=== PATIENT | female | born 1960 | race Two or more races ===

== ENCOUNTER 2025-03-11 23:46 | Emergency (ER) | payer OTHER ==
[~2025-03-11] VITALS: Ht 165.1 cm; Wt 84.3 kg
[2025-03-11 23:53] VITALS: BP 147/88; RESP 20; TEMP 98.4; O2SAT 95
--- NOTE | 2025-03-12 00:19 | ED.PDOC ---
Cruz. trauma (HPI) HPI Comments 65-year-old female presented to the ER with a chief complaint of right 2nd toe pain and swelling for the past hour after experiencing mechanical fall. Patient was coming downstairs, she tripped as it was dark for her to see, her shoulders hit the rails and she landed on her right side of the body, denies hitting her head or losing consciousness. Denies any triggering factors including dizziness lightheadedness, feeling of warmth or cold. Patient complains of right toe pain and swelling, no numbness or tingling, no motor deficits, active and passive range of motion intact with pain. Past medical history atrial flutter on metoprolol Home medications: Metoprolol on Allergic history: None Social history: Lives with , denies smoking/drinking/drug use Patient seen and examined. Active and passive range of motion intact pain over the shoulde and the foot. No bruising of the shoulder or the foot. Shoulder x- ray and 2nd toe right x-ray unremarkable. Chief Complaint: Fall Injury Time Seen by MD: 23:55 Allergies: Coded Allergies: NO KNOWN ALLERGIES (Unverified , 03/11/25) Mode of Arrival: Ambulatory Past Medical History Past Medical History (Other): Atrial flutter Constitutional: denies: chills, diaphoresis, fatigue, fever, malaise, sweats, weakness, others EENTM: denies: blurred vision, double vision, ear bleeding, ear discharge, ear drainage, ear pain, ear ringing, eye pain, eye redness, hearing loss, mouth pain, mouth swelling, nasal discharge, nose bleeding, nose congestion, nose pain, photophobia, tearing, throat pain, throat swelling, voice changes, others Respiratory: denies: cough, hemoptysis, orthopnea, SOB at rest, shortness of breath, SOB with excertion, stridor, wheezing, others Cardiovascular: denies: chest pain, dizzy spells, diaphoresis, Dyspnea on exertion, edema, irregular heart beat, left arm pain, lightheadedness, palpitations, PND, syncope, others Gastrointestinal: denies: abdomen distended, abdominal pain, blood streaked bowels, constipated, diarrhea, dysphagia, difficulty swallowing, hematemesis, melena, nausea, poor appetite, poor fluid intake, rectal bleeding, rectal pain, vomiting, others Genitourinary: denies: abnormal vagina bleeding, burning, dyspareunia, dysuria, flank pain, frequency, hematuria, incontinence, pain, , vagina discharge, urgency, others Neurological: denies: dizziness, fainting, headache, left sided numbness, left sided weakness, numbness, paresthesia, pre-existing deficit, right sided numbness, right sided weakness, seizure, speech problems, tingling, tremors, weakness, others Musculoskeletal: reports: joint pain Integumetry: reports: others (Right 2nd toe tenderness, pain, swelling) Allergic/Immunocompromised: denies: Difficulty Healing, Frequent Infections, Hives, Itching, others Hematologic/Lymphatic: denies: anemia, blood clots, easy bleeding, easy bruising, swollen glands, others Endocrine: denies: excessive hunger, excessive sweating, excessive thirst, excessive urination, flushing, intolerance to cold, intolerance to heat, unexplained weight gain, unexplained weight loss, others Psychiatric: denies: anxiety, bipolar disorder, depression, hopeless, panic disorder, schizophrenia, sleepless, suicidal, others Physical Exam General Appearance: No Apparent Distress, Normal HEENT: NOT DONE Neck: NOT DONE Respiratory: No Accessory Muscle Use, No Respiratory Distress, Normal Breath Sounds Cardiovascular: No Edema, No Murmur, Regular Rate/Rhythm Breast Exam: Deferred Gastrointestinal: No Organomegaly, Non Tender, No Pulsatile Mass, Normal Bowel Sounds, Soft Genitalia: Deferred Pelvic: Deferred Rectal: Deferred Extremities: Other (Right 2nd toe tenderness, passive range of motion intact with pain) Neurologic: Alert, No Motor Deficits, Normal Affect, Normal Mood, No Sensory Deficits Cerebellar Function: NOT DONE Reflexes: NOT DONE Skin: Dry, Warm Lymphatic: NOT DONE Was a procedure done? Was a procedure done?: No Differential Diagnosis Multiple Trauma: Fractures, Other (Sprain, hematoma) X-Ray, Labs, Meds, VS Vital Signs Date Time Temp Pulse Resp B/P (MAP) Pulse Ox O2 Delivery O2 Flow Rate FiO2 03/11/25 23:53 98.4 84 20 147/88 95 98.4 Lab Test 03/12/25 00:33 Range/Units White Blood Count 14.3 H 4.4-10.8 10^3/uL Red Blood Count 4.84 4.0-5.20 10^6/uL Hemoglobin 14.0 12.2-16.2 g/dL Hematocrit 41.8 36.0-46.0 % Mean Corpuscular Volume 86.4 80.0-100.0 fL Mean Corpuscular Hemoglobin 28.9 28.0-32.0 pg Mean Corpuscular Hemoglobin Concent 33.5 32.0-36.0 g/dL Red Cell Distribution Width 13.9 11.8-14.3 % Platelet Count 315 140-450 10^3/uL Mean Platelet Volume 7.4 6.9-10.8 fL Neutrophils (%) (Auto) 75.1 37.0-80.0 % Lymphocytes (%) (Auto) 16.4 10.0-50.0 % Monocytes (%) (Auto) 6.2 0.0-12.0 % Eosinophils (%) (Auto) 1.8 0.0-7.0 % Basophils (%) (Auto) 0.5 0.0-2.0 % Neutrophils # (Auto) 10.7 H 1.6-8.6 10 ^3/uL Lymphocytes # (Auto) 2.4 0.4-5.4 10 ^3/uL Monocytes # (Auto) 0.9 0-1.3 10 ^3/uL Eosinophils # (Auto) 0.3 0-0.8 10 ^3/uL Basophils # (Auto) 0.1 0-0.2 10 ^3/uL Nucleated Red Blood Cells 0.1 % X-Ray, Labs, Meds, VS Comment TECHNIQUE: XYXY R 2ND TOE XRAY Comparison: None FINDINGS/IMPRESSION: : There is no evidence of acute fracture or dislocation. Soft tissues are unremarkable. CLINICAL INDICATION: fall with pain TECHNIQUE: XYXY R SHOULDER 1V XRAY Comparison: None FINDINGS/IMPRESSION: : There is no evidence of acute fracture or dislocation. Soft tissues are unremarkable. Images Reviewed?: Images reviewed and evaluated by me Time of 1ST Reevaluation: 01:00 Reevaluation 1ST: Improved (Pain has improved) Consultation: PCP Patient Education/Counseling: Diagnosis, Treatment Family Education/Counseling: Diagnosis, Treatment Departure 1 Departure Time of Disposition: 01:30 Impression: Primary Impression: Fall (on) (from) other stairs and steps, initial encounter Additional Impression: Pain in toe of right foot Disposition: 01 HOME / SELF CARE / HOMELESS Condition: Stable Comments Elevate the leg on pillows when resting tone reduced swelling Apply ice to the knee for 15-20 minutes several times a day for the 1st few days. Always place a cloth between the ice and skin Take ibuprofen/Tylenol 3 times daily as needed for pain control Please go to the ER BP and noticed severe increasing pain or swelling not relieved by medication on rest, numbness, tingling, coldness in the toes or foot, worsening redness, discharge or fever, sudden difficulty moving dose or new weakness. Follow up with primary care physician within the next 7 days, check your vitamin-D and calcium levels. Eat balance diet rich in calcium and protein to support bone holding, avoid smoking and alcohol. TECHNIQUE: XYXY R 2ND TOE XRAY Comparison: None FINDINGS/IMPRESSION: : There is no evidence of acute fracture or dislocation. Soft tissues are unremarkable. CLINICAL INDICATION: fall with pain TECHNIQUE: XYXY R SHOULDER 1V XRAY Comparison: None FINDINGS/IMPRESSION: : There is no evidence of acute fracture or dislocation. Soft tissues are unremarkable. Critical Care Note Critical Care Time?: No Stability Stability form required: ROXY Garcia RESIDENT Mar 12, 2025 00:19
--- NOTE | 2025-03-12 00:40 | DVH ---
CLINICAL INDICATION: fall with pain TECHNIQUE: XYXY R SHOULDER 1V XRAY Comparison: None FINDINGS/IMPRESSION: : There is no evidence of acute fracture or dislocation. Soft tissues are unremarkable.
--- NOTE | 2025-03-12 01:01 | DVH ---
CLINICAL INDICATION: fall, pain and swelling over 2nd toe TECHNIQUE: XYXY R 2ND TOE XRAY Comparison: None FINDINGS/IMPRESSION: : There is no evidence of acute fracture or dislocation. Soft tissues are unremarkable.
[2025-03-12 01:04] LABS: Hematocrit 41.8 % (36.0-46.0); Hemoglobin 14.0 g/dL (12.2-16.2); Mean Corpuscular Hemoglobin 28.9 pg (28.0-32.0); Mean Corpuscular Volume 86.4 fL (80.0-100.0); Nucleated Red Blood Cells % 0.1 %
[2025-03-12 02:00] VITALS: PULSE 88
[2025-03-12] MEDS: IBUPROFEN 600 MG TAB PO ONE (02:08)
== END 2025-03-12 02:11 | disposition home or self-care (01) ==
LOC: ER 23:46
DX: M79.674 Pain in right toe(s) (principal); M79.671 Pain in right foot; W01.0XXA Fall on same level from slipping, tripping and stumbling without subsequent striking against object, initial encounter; Y93.89 Activity, other specified; Y92.89 Other specified places as the place of occurrence of the external cause; Y99.8 Other external cause status
CPT/HCPCS: 36415; 73020; 73660; 85025